=== PATIENT | male | born 1965 | race Caucasian/White ===

== ENCOUNTER 2019-11-28 11:02 | Outpatient (REF) | payer OTHER, SELFPAY ==
[2019-11-28 12:01] LABS: COVID-19 Test Negative (Negative)
== END 2019-11-28 11:03 | disposition home or self-care (01) ==
LOC: HO.LAB 11:02
PROVIDERS: Visit Provider Internal Medicine
DX: Z20.828 Contact with and (suspected) exposure to other viral communicable diseases (principal)
CPT/HCPCS: 87635

== ENCOUNTER 2019-12-18 06:18 | Outpatient (REF) | payer OTHER, SELFPAY ==
[2019-12-18 06:45] LABS: COVID-19 Test Negative (Negative)
[2019-12-31 08:16] LABS: COVID-19 Test Positive (Negative)
== END 2019-12-18 06:19 | disposition home or self-care (01) ==
LOC: HO.EMPCOV 06:18
PROVIDERS: Visit Provider Internal Medicine
DX: Z20.828 Contact with and (suspected) exposure to other viral communicable diseases (principal)
CPT/HCPCS: 87635; C9803

== ENCOUNTER 2021-08-11 05:48 | Day surgery (SDC) | payer OTHER, SELFPAY ==
[2021-08-05 14:39] VITALS: BMI 24.5
[2021-08-05 15:30] VITALS: BMI 24.4
[2021-08-11] VITALS (8 sets, daily range): BP systolic 127–157; BP diastolic 71–92; PULSE 61–69; RESP 15–18; TEMP 36.1–36.8; O2SAT 94–98
[2021-08-11] MEDS: Lactated Ringers 1,000 ML 100 ML IVCONT (06:25)
--- NOTE | 2021-08-11 07:33 | P.CONAN_ITS ---
[facility] Active Problems Active Problems: All Active Problems (Updated 07/23/21 @ 13:28 by Vahid Wilks MD) Right inguinal hernia (Acute) Family History Family history of problems with anesthesia: No Surgical History Surgical History (Updated 08/05/21 @ 15:29 by Davina Fountain RN) No pertinent past surgical history History of Problems with Anesthesia: No Social History Social History Are you a primary dog daycare provider to a significant other at home: No Do you presently have visiting nurse or other home services: No Alcohol intake: never Patient Tobacco Use Status: Current everyday Tobacco user Tobacco use type: Cigarette Cigarette Packs Per Day: 1 Cigarettes Per Day: 20.0 Years Smoked: 15 Smoked in Last 30 Days: Yes Have you been hit, kicked, punched, or otherwise hurt by someone within the past year? If so, by whom?: No Are you DNR?: No Advance Directives: No Advance Directives Information Provided: Yes Advance Directives on File: No Recently lost weight without trying: No Nutrition Risks: No Nutritional Risk Meds Allergies Allergy/AdvReac Type Severity Reaction Status Date / Time No Known Allergies Allergy Verified 07/23/21 10:59 Active Medications: Current Medications Lactated Ringer's (Lr) 1,000 mls @ 100 mls/hr IVCONT .Q10H DAVIDE Last Admin: 08/11/21 06:25 Dose: 100 mls/hr Home Medications Medication Instructions Recorded Confirmed Last Taken Type No Known Home Meds 07/23/21 08/05/21 Unknown History Exam Exam Date and Time: August 11, 2021 0733 Height,Weight and Vital Signs: Height 5 ft 11 in Weight 79.379 kg Last Vital Signs Temp 98.2 F 08/11/21 06:01 Pulse 69 08/11/21 06:01 Resp 18 08/11/21 06:01 BP 127/76 08/11/21 06:01 Pulse Ox 96 08/11/21 06:01 O2 Del Method 08/11/21 06:01 Airway Mallampati Class: II TM Dist: >3cm Neck ROM: Full Partial: Lower Loose/Missing/Broken Teeth: Yes and Upper Heart: rrr Lungs: clear Other: poor upper dentition missing and spike tooth in front. patient warned that tooth loss is a possibility and accepts risk.teeth Assessment and Plan Final Anesthetic Review Family History of Problems with Anesthesia: No History of Problems with Anesthesia: No NPO: Yes ASA Class: II Final Preanesthetic Review: No Changes in Pt Med Stat, Meds/Allgs Chart Reviewed, Consent Obtained/Reviewed and Anes Risks/Benef Reviewed Patient Risk: Low Procedure Risk: Low Anesthetic Plan Anesthetic Plan: GA Disposition: Standard PACU
--- NOTE | 2021-08-11 07:56 | MHC.SHP ---
Pre-Procedural Eval Section A Date of Service: 08/11/21 The patient is an INPATIENT: No Changes since office visit: Yes Patient answered all questions; No Cold of Flu in the past 2 weeks, No New Medical Problems and No Changes in Medication The History & Physical has been completed within 30 days and I have reviewed it.: Yes Section B Chief Complaint: hernia Allergies: Allergies Allergy/AdvReac Type Severity Reaction Status Date / Time No Known Allergies Allergy Verified 07/23/21 10:59 Plan Diagnosis/Plan: Unchanged I have reviewed the history and physical and performed a pertinent physical examination on my patient. No changes have occurred unless specified.
--- NOTE | 2021-08-11 09:02 | W.PM.OPN ---
Operative Note Operative Note Date of Service: 08/11/21 Narrative: Preoperative diagnosis: Right inguinal hernia Postoperative diagnosis: same Procedure: repair of right inguinal hernia Surgeon: Vahid Wilks MD Food And Beverage Operations Manager: WIL Fowler Anesthesia: general LMA Indications for procedure: 56-year-old male patient presenting with a palpable mass in right groin which increases in size with lifting and straining reduces with light pressure. Operative findings: Indirect right inguinal hernia containing preperitoneal fat Specimen: none Estimated blood loss: 5 mL Complications: none Procedure details: patient was brought to the OR placed in a supine position. After administering general anesthesia the patient's abdomen was prepped with ChloraPrep and draped in a sterile fashion. A surgical time-out was called the consent confirmed. Patient received preoperative antibiotics and Venodyne boots were in place. Local anesthesia consisting of 0.5% Sensorcaine with epinephrine was then infiltrated over the right inguinal ligament. an incision was then made with a scalpel carried through subcutaneous tissue, past Saloni's fashion up to the external oblique aponeurosis. Additional local was infiltrated below the external oblique aponeurosis. This was then incised and wide with the Metzenbaum scissors. The spermatic cord was then dissected free from the surrounding subcutaneous tissue and retracted using a Babak drain. A large indirect hernia was identified within the cord. No direct hernia was identified. Fibers of the cremasteric muscle were then and a large lipoma of the cord identified. This was dissected down to the internal ring and reduced into the abdominal cavity. A large extended PHS mesh was then obtained. The circular underlay was then deployed within the preperitoneal space. The overlay was then secured to the pubic tubercle, conjoined tendon, and shelving edge of the inguinal ligament using 0 Polysorb suture. A slit was made in the mesh around the internal ring and wrapped around the spermatic cord. This was then secured to the shelving edge using 0 Polysorb suture. Wounds were then irrigated with saline solution suctioned dry. 4 mL of Zenrelef was then infiltrated around the mesh. External oblique aponeurosis was then closed using a running 2 0 Polysorb suture. An additional 4 mL of Zenrelef was then applied over the external oblique aponeurosis. Saloni's fascia was then reapproximated using interrupted 3-0 Polysorb sutures. Dermis was reapproximated using interrupted 3-0 Polysorb sutures. Skin was then closed using a running subcuticular 4-0 Polysorb suture. Steri-Strips, 2 x 2 gauze and Tegaderm were then applied. The patient tolerated the procedure well. Sponge, instrument, and needle counts reported as correct. The patient was transferred to PACU in stable condition.
== END 2021-08-11 11:17 | disposition home or self-care (01) ==
PROVIDERS: Visit Provider Surgery
PROC: (CPT 49505; principal; 2021-08-11 07:30)
DX: K40.90 Unilateral inguinal hernia, without obstruction or gangrene, not specified as recurrent (principal); D17.6 Benign lipomatous neoplasm of spermatic cord; F17.210 Nicotine dependence, cigarettes, uncomplicated
CPT/HCPCS: 49505; C1781; C9088; J0690; J1100; J2250; J2405; J2795; J3010

== ENCOUNTER → 2021-11-25 13:04 | Outpatient (RCR) | payer OTHER, SELFPAY ==
[2019-12-25 07:53] LABS: COVID-19 Test Negative (Negative); IDNOW Serial# 55D5AD1C
== END | disposition home or self-care (01) ==
LOC: HO.EMPCOV 12-25 07:06
PROVIDERS: Visit Provider Internal Medicine
DX: Z20.828 Contact with and (suspected) exposure to other viral communicable diseases (principal)
CPT/HCPCS: 87635; C9803

== ENCOUNTER 2023-12-08 09:54 | Outpatient (AMB) | payer OTHER, SELFPAY ==
--- NOTE | 2023-12-08 10:05 | MHC.OFFVIS ---
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 Patient reports that he was at home in his garage on a ladder putting away something on a shelf. The ladder causing him to fall on his shoulder. He was seen at work connection and was referred to orthopedics. His pain has improved since his injury. He complains of pain that is located at the crease of his elbow. His numbness has subsided. Finds relief with icing and Tylenol. 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 He reports he was at his home garage on a ladder pulling things away from a shelf when the ladder causing him to fall on his shoulder. He was seen at work connection , xrays and CT scan was ordered. There was a suspicion for anterior shoulder dislocation; however, the patient states there was no evidence of the shoulder being out of the joint and no reduction was performed. He was referred to our office. He currently states he has improvement however he continues to have pain and swelling at the crease of his elbow up into the distal bicep. His pain is aggravated with bending. His numbness has subsided. He finds relief with icing and Tylenol. [facility] Surgical History History of right inguinal hernia repair (08/11/21) Social History (Updated 12/08/23 @ 10:09 by RAMAKRISHNA Ralph) Are you a primary morning caregiver to a significant other at home: No Do you presently have visiting nurse or other home services: No Alcohol intake: never Patient Tobacco Use Status: Current everyday Tobacco user Tobacco use type: Cigarette Cigarette Packs Per Day: 1 Cigarettes Per Day: 20.0 Years Smoked: 15 Current occupation: right hand dominant Review of Systems Const All systems reviewed & are unremarkable except as noted in HPI and below Physical Exam Vital Signs: BMI result Body Mass Index 23.7 Const General: cooperative, healthy appearing, comfortable, no acute distress, well developed and alert Orientation/consciousness: patient oriented x3 HEENT Head: Yes normal to inspection, Yes normocephalic and Yes atraumatic Eyes General: appearance normal, both eyes and all related structures Resp Effort & Inspection: normal respiratory effort and able to speak in complete sentences Cardio Rate: regular rate Peripheral pulses: Peripheral pulses 2+ throughout GI Palpation (GI): Soft to palpation Skin Lesions: no lesions Rashes: no rashes Neuro General: patient oriented x3 Extrem Other: Left shoulder: Normal to inspection. There is significant ecchymosis over the bicep region with pain along the distal bicep tendon with a notable defect. Pain with pronation against resistance. Assessment & Plan Assessment & Plan (1) Rupture of left biceps tendon: Code(s): S46.212A - Strain of muscle, fascia and tendon of other parts of biceps, left arm, initial encounter Category: Medical Plan Dr. Reynaga was available to see the patient with me today. We discussed operative vs nonoperative management. If he decides to move with nonoperative management we explained he can have close to normal function however he will have limitations with supination type activities along with notable deformity along the muscle belly of biceps. He would like to take the weekend to think about this. If he decides to proceed with surgical intervention, it will be left distal bicep tendon repair. We discussed risks, benefits, and alternatives, risks including but not limited to infection, re-rupture, stiffness, pain and nerve and tissue damage to surrounding structures. He is content with this plan and will contact us on Monday to discuss this going forward. Patient Instructions: Scribed for Horacio Odell PA-C, by Marcus Perez medical records field technician, on 12/08/2023 at 10:00 AM EST.? I, Horacio Odell PA-C, have personally reviewed and agree with the information entered by the scribe. Coding Level of Care Code New Pt Level 4 (41034) Complex EM visit Add On G2211 Diagnoses Rupture of left biceps tendon S46.212A
[2023-12-08 10:08] VITALS: BMI 23.7
== END 2023-12-08 12:23 | disposition home or self-care (01) ==
LOC: HO.HOS 09:55
PROVIDERS: Visit Provider Physician Assistant
DX: S46.212A Strain of muscle, fascia and tendon of other parts of biceps, left arm, initial encounter (principal)
CPT/HCPCS: 99204

== ENCOUNTER → 2023-12-08 09:54 | Outpatient (BNVA) | payer OTHER, SELFPAY | PROVIDERS: Visit Provider Physician Assistant ==